=== PATIENT | male | born 1960 | race Caucasian/White ===

== ENCOUNTER 2025-03-01 11:04 | Outpatient (CLI) | payer BC, SELFPAY | END 2025-03-01 11:05 | disposition home or self-care (01) | PROVIDERS: PCP Internal Medicine; Visit Provider Internal Medicine | DX: I10 Essential (primary) hypertension (principal); E78.5 Hyperlipidemia, unspecified; Z12.5 Encounter for screening for malignant neoplasm of prostate | CPT/HCPCS: 80048; 80061; G0103 ==